=== PATIENT | male | born 1970 | race Caucasian/White ===

== ENCOUNTER → 2024-01-29 12:55 | Outpatient (REF) | payer OTHER, SELFPAY | LOC: RAD 12:55 | PROVIDERS: ATTENDING PHYSICIAN Physician Assistant; FAMILY PHYSICIAN Family Medicine | DX: R10.12 Left upper quadrant pain (principal) | CPT/HCPCS: 76700 ==

== ENCOUNTER → 2024-02-03 10:01 | Outpatient (REF) | payer OTHER, SELFPAY ==
--- NOTE | 2024-02-17 09:56 | OID.L.PAT ---
Pulmonary Nodule Pat Letter
- -
02/17/24
TYE HERNANDEZ
[address] [place] [address]
[place] [address]
Dear TYE,
A pulmonary nodule was seen on an imaging study done by [facility]. This was reviewed by the [facility] Pulmonary Nodule Advisory Board and the following recommendation was made:
Recommendation: Follow up with a reliability engineer.
If you have any questions, please do not hesitate to contact your primary care physician. If you are in need of a Physician, you can go to [email or web address] and click on 'Find a Provider'. Type 'Family Medicine' in the search.
Oncology Nurse Navigator
[facility]
[phone]
--- NOTE | 2024-02-17 10:07 | OID.L.REC ---
Pulmonary Nodule Follow Up
- Recommendation
02/17/24
Pulmonary Nodule Review Recommendations
Your patient, TYE HERNADNEZ, had a pulmonary nodule on an imaging study done on 02/03/2024 in the [facility].
This was reviewed by the [facility] Pulmonary Nodule Advisory Board and the following recommendation was made:
Recommendation: Follow up with a stratigrapher.
If you have any questions please do not hesitate to contact us.
Sincerely,
Oncology Nurse Navigator
[facility]
[phone]
== END ==
LOC: RAD 10:01
PROVIDERS: ATTENDING PHYSICIAN Physician Assistant
DX: R06.02 Shortness of breath (principal)
CPT/HCPCS: 71046

== ENCOUNTER 2024-02-05 05:43 | Inpatient (IN) | payer OTHER, SELFPAY ==
[2024-02-05] VITALS (17 sets, daily range): BP systolic 108–131; BP diastolic 68–93; BMI 27.2; BMI 27.0
[2024-02-05 02:35] LABS: % Basophils 0.8 % (0-2); % Eosinophils 2.1 % (0-6); % Immature Granulocytes 0.4 % (0-0.5); % Lymphocytes 28.3 % (20.5-51.1); % Neutrophils 60.4 % (42.2-75.2); Absolute Basophils 0.1 10^3/uL (0-0.2); Absolute Eosinophils 0.2 10^3/uL (0-0.7); Absolute Lymphocytes 2.2 10^3/uL (1.2-3.4); Absolute Monocytes 0.6 10^3/uL (0.1-0.6); Absolute Neutrophils 4.7 10^3/uL (1.4-6.5); Hemoglobin 13.5 g/dL (13.0-18.0); Mean Corp Hgb Conc. 35.5 g/dL (33.0-37.0); Mean Corpuscular Hgb 30.7 pg (27.0-31.0); Mean Corpuscular Volume 86.4 fL (80.0-94.0); Mean Platelet Volume 9.2 fL (7.4-10.4); Nucleated Red Blood Cells % 0 % (-); Platelet Count 206 10^3/uL (130-400); Red Cell Dist. Width 11.9 % (11.5-14.5); White Blood Cell Count 7.7 10^3/uL (4.8-10.8)
[2024-02-05 02:54] LABS: ALT (SGPT) 36 U/L (0-50); AST (SGOT) 37 U/L (17-59); Albumin 4.1 g/dl (3.5-5.0); Alkaline Phosphatase 94 U/L (38-126); Blood Urea Nitrogen 19 mg/dl (9-20); Calcium 9.2 mg/dl (8.4-10.2); Carbon Dioxide 23 mmol/L (22-30); Chloride 105 mmol/L (98-107); Estimated Creatinine Clearance 82 ml/min; Glucose 168 mg/dl (70-99); Potassium 4.2 mmol/L (3.5-5.1); Sodium 136 mmol/L (135-145); Total Bilirubin 1.1 mg/dl (0.2-1.3); Total Protein 7.2 g/dl (6.3-8.2); eGFR > 60.00
[2024-02-05 03:05] LABS: Troponin I 0.026 ng/ml
[2024-02-05 03:21] LABS: INR 1.26; PT 15.6 Sec (11.4-14.6)
--- NOTE | 2024-02-05 03:41 | ED.GENMED ---
History of Present Illness
General
Chief Complaint: Breathing Problem
Source: patient
Exam Limitations: none
Time Seen by Provider: 02/05/24 02:45
Nursing documentation reviewed up to this point in time: agreed with
Travel History
Have you had any contact with someone who has COVID-19?: No
Do you have any symptoms of coronavirus? Fever > 100 degrees, chills, cough, shortness of breath, sore throat, loss of taste or smell, muscle aches, or headache?: No
History of Present Illness
History of Present Illness:
Pleasant 53-year-old male presents with difficulty breathing and upper abdominal pain. This began approximately -1 week ago and is progressively worsening since. He reports difficulty catching his breath. He tested negative for COVID yesterday.
He just got back from a trip to [place] this past weekend. Patient does report some unexplained weight loss over the last month.
Review of Systems
Review of Systems
Allergies reviewed?: Yes
All Other Systems: ROS reviewed and negative except as documented in HPI and ROS
Respiratory: Reports cough and trouble breathing; Denies hemoptysis
Cardiac: Reports chest pain
ABD/GI: Reports abdominal pain
Phy Exam
General Physical Exam
General Presentation: well appearing and moderate distress
General Skin: warm and dry
General Habitus: normal
General Mental: alert
General Hydration: appears well hydrated
ENT Exam
ENT Exam: EOMI, pharynx normal, neck supple and normocephalic
Eye Exam
Eye Exam: PERRL, cornea clear and conjunctiva normal
Cardiovascular Exam
Cardiovascular Exam: regular rate/rhythm, no edema, no murmur and normal peripheral pulses
Pulmonary Exam
Pulmonary Exam: decreased breath sounds and generalized wheezing
Oxygen Status: oxygen 4 liters via NC
Gastrointestinal Exam
Gastrointestinal Exam: normal bowel sounds, non tender, soft, no organomegaly, no pulsatile mass and non distended
Neurological Exam
Neurological Exam: alert, oriented x3, no motor deficits and speech normal
Musculoskeletal Exam
Musculoskeletal Exam: full ROM and no edema
Skin Exam
Skin Exam: pallor
Psychiatric Exam
Psychiatric Exam: normal mood/affect and anxious
Scores
Heart Failure Risk
Heart Failure Risk Score: Not Applicable
Course
Orders/Labs/Results
Orders:
Orders
02/05/24 02:08
Electrocardiogram (*1) Urgent
Reason for Study: Chest Pain
EKG- Treatment ONCE
02/05/24 02:25
CMP [Comprehensive Metabolic Panel] Urgent
Complete Blood Count/With Diff Urgent
Troponin I Urgent
02/05/24 02:46
CT Pe/abd/pel W Urgent
Comment: changed to combined
Reason For Exam: dyspnea, cp
02/05/24 03:04
PTT Urgent
Comment: ADD ON
Prothrombin Time Urgent
02/05/24 04:[address] Non Medication Order As Directed
Physician Order: PTT 6 hours after initial start of Heparin infusion
Above order entered?: Yes
02/05/24 04:27
Add On- LAB Urgent
Comments:: blood in lab
Tests Added?: PTT
02/05/24 04:30
Heparin 33509 Units/250 ml 25,000 units in 250 ml IV PER PROTOCOL
Weight to be used for heparin protocol in kilograms (kg):: 96
Protocol:: DVT/PE
PTT Goal Range to be used:: PTT 73 to 111 seconds
Order type:: Initial
INITIAL Infusion Dose (UNITS/KG/hr) & then follow protocol:: 18 units/kg/hr
Infusion Dose in UNITS/hr & then follow protocol (UNITS/hr):: 1,700
INFUSION RATE in mL/hr & then follow protocol (mL/hr):: 17
For DVT/PE algorithm, re-bolus for low PTT?: Yes
PTT less than or equal to 64 seconds:: Re-bolus 80 units/kg (max 10,000units). Increase by 400 units/hr
(+ 4mL/hr)
PTT 64.1 to 72.9 seconds:: Re-bolus 40 units/kg (max 5,000 units). Increase by 200 units/hr
(+ 2mL/hr)
PTT 73 to 111 seconds:: Target Range. No change in rate.
PTT 111.1 to 130.9 seconds:: Decrease rate by 200 units/hr (- 2 mL/hr)
PTT 131 to 199.9 seconds:: HOLD for 1 hr. Then decrease by 300 units/hr (- 3mL/hr)
PTT greater than or equal to 200 seconds:: HOLD for 2 hrs & Notify Provider. Then decrease by 400 units/hr
(- 4mL/hr)
Lab follow-up:: Each change, PTT q6h until 2 consecutive are therapeutic. Then
PTT daily.
02/05/24 04:43
Admit/Transfer Patient As Directed
Co-Sign Provider:
Level of Care: Inpatient admission
Assign to:: ICU
Physician / Group: kyle
Diagnosis: acute PE, acute hypoxic RF , wt loss
Reason for Hospitalization: acute PE, acute hypoxic RF , wt loss
Expected length of stay greater than two midnights?: Yes
ELOS- Estimated Length of Stay in days: 3
I certify the patient meets the requirements for IP care: Yes
02/05/24 04:45
Code Status As Directed
Resuscitation Status: Full Code
02/05/24 04:50
Consult Notification Routine
Specialty to Notify: Oncology
ONCOLOGY CONSULT Routine
Consulting Provider: Nikita Brown
Was physician already notified: No
Reason for consult: acue PE , splenic nodule, signifcant wt loss
02/05/24 04:52
COVID-19 Antigen Routine
Source: Nasal Swab
02/05/24 05:[address] See Dose Instructions IV DIRECTED
02/05/24 Breakfast
NPO
Allow oral meds: Yes
Allow clear liquids: Sips of Clears
NPO with Ice Chips: Yes
02/05/24 06:14
Acetaminophen [Tylenol] 650 mg PO Q4HPRN PRN
02/05/24 06:14
Echo 2D MMode Color/Doppler Routine
Reason for Study: pulmonary embolism
Automotive Artist Consult Routine
Consulting Provider: Tomás Lam
Was physician already notified: Yes
Reason for consult: acute PE, acute hypoxic RF , wt loss
Activity As Directed
Activity Level: With Assistance
Bladder Scan As Directed
Follow Bladder Retention/Intermittent Cath Algorithm?: Yes
Frequency: Per Retention Algorithm
Comment: as per intermittent urinary catheter algorithm
Bladder Scan As Directed
Follow Bladder Retention/Intermittent Cath Algorithm?: Yes
PRN if no void in __ hours: 6
Frequency: Per Retention Algorithm
If Bladder Scan Result >: 400
then:: Straight cath
Intake/ Output As Directed
Frequency: Per unit guidelines
Straight Cath As Directed
Frequency: Per Retention Algorithm
Additional Instructions: as per intermittent urinary catheter algorithm
Straight Cath As Directed
Frequency: Per Retention Algorithm
Additional Instructions: straight cath as needed per acute urinary retention algorithm for 24 hrs
Additional Instructions: for bladder scan greater than 400 mL
Vital Signs As Directed
Frequency: Per unit guidelines
O2 Therapy [RESP] Routine
Titrate/Wean O2 to maintain O2 sat greater than (%): 90
US Periph Venous LOWER Ext Valdo Routine
Comment:
Reason For Exam: DVT/PE
02/05/24 08:00
Pantoprazole [Protonix] 40 mg PO DAILY
02/05/24 10:24
PTT Urgent
02/06/24 06:00
Complete Blood Count/No Diff IN AM
Comprehensive Metabolic Panel IN AM
Abnormal Lab Results
02/05/24 02/05/24
02:25 03:04
RBC 4.40 L 10^6/uL
(4.70-6.10)
Hct 38.0 L %
(39.0-52.0)
PT 15.6 H Sec
(11.4-14.6)
Glucose 168 H mg/dl
(70-99)
02/05/24 02:25
02/05/24 02:25
Vital Signs
Initial and Last Documented VS:
Initial Vital Signs
Temp Pulse Resp BP Pulse Ox
98.6 F 133 28 112/70 83
02/05/24 02:03 02/05/24 02:03 02/05/24 02:03 02/05/24 02:03 02/05/24 02:03
Last Documented Vital Signs
Temp Pulse Resp BP Pulse Ox
98.5 F 102 17 131/93 96
02/05/24 06:17 02/05/24 06:25 02/05/24 06:25 02/05/24 06:15 02/05/24 06:41
*Pulse Oximetry
Patient hypoxic: yes
Comment: EKG shows sinus tachycardia rate of 124. There is left axis deviation.
*EKG
Interpreted by ED Provider?: Yes
Interpretation: abnormal
Heart Rate: 124
Rhythm: sinus and sinus tachycardia
QRS Pattern: normal QRS
Ischemia: other (S1Q3T3)
*Critical Care Note
Total Time (30-74mins, 75-104mins- exclusive of procedures): 35 ( Critical care statement: A total of 35 minutes of critical care time was provided for this patient. This time is separate from time utilized to perform the aforementioned documented
procedures. Aggregate critical care time includes only time during which I was engaged in work direct)
Patient Management
Social determinants of health affecting care: Living situation and Strong social support
Discussion with other providers: Hospitalist and Fund Development Manager (Keesha)
Escalation/DeEscalation of care consider admission/obs:
After speaking with the jewel hole finish opener, patient to be admitted to the hospitalist service to the ICU. Catheter directed thrombolytics will be held for now. Heparin ordered.
ED Attending Note
-
Portions of this chart may have been created with voice recognition software.� Occasional wrong word or��sound alike� substitutions may have occurred due to the inherent limitations of voice recognition software.
Discharge Plan
Departure
Patient Disposition: Admit
Date of Disposition: 02/05/24
Time of Disposition: :
Admit to: ICU
Presentation/result/management discussed w/ accepting MD/DO: Hospitalist
Discharge Problem:
Pulmonary embolus
Interventions
Interventions:
*Risk Screen - Suicide Last Done: 02/05/24 02:03
*General Assessment Last Done: 02/05/24 02:58
*Neglect/Abuse Screening Last Done: 02/05/24 02:03
ED- Fall Risk Assessment Last Done: 02/05/24 02:58
*ED COVID-19 Vaccine History Last Done: 02/05/24 02:53
*Nursing Disposition Last Done: 02/05/24 06:00
NG-Rhpjwy-Xphptwrmwr Assessment Last Done: 02/05/24 03:34
ED- Cardiac Assessment Last Done: 02/05/24 02:58
ED- Pulmonary Assessment Last Done: 02/05/24 02:58
Discharge Date and Time
Discharge Date/Time: 02/05/24 06:00
--- NOTE | 2024-02-05 04:11 | HPS.HSE ---
Addendum entered and electronically signed by Kev Evans MD 02/05/24 05:01:
Addendum: Onco consult.
Original Note:
Family Physician
-
Family Physician:
Chief Complaint
-
SoB and Upper abdominal pain:
History of Present Illness
53M Healthy state with no established PMH, not on any Meds seen ar ER for SoB @ upper abdominal pain recent w/u for unexplained wt loss
SOB :
Noted for 4-6 weeks
last 24hrs SoB with minimal exertion
Associated with Lt lower CP with deep inspiration
Associate tachycardia, tachypnea,acute hypoxia POx around mid 80s
Denied CP and pleuritic pain
Recent prolonged driving to [place] and [place] 2 weeks ago
HX superficial vein clot 2-3 yrs ago of unexpended reason. No bllod thinner
No Family HX PE
Unexplained wt loss:
10-20 lbs in 2 weeks
attributed to poor appetite for a month
Poor appetite for 2 -3 weeks
Upper abdominal pain: No N/V/D
Unremarkable WCC and LFTs
Unremarkable US on 01/28/23
HX normal colonoscopy in Nov 2023
Medical History
Past Medical History
Past Medical History: Reports None
Past Surgical History: Reports None
Social History
Tobacco: Non-smoker
Alcohol: None
Drug: None
Family History
Family History: Not pertinent
Allergies / Home Medications
Allergies reflects when Allergies were last updated in [facility].
Home Medications with original date entered in [facility]
Allergy/Medication List:
Allergies
Allergy/AdvReac Type Severity Reaction Status Date / Time
No Known Allergies Allergy Verified 02/05/24 02:08
Home Medications
No Meds [No Current Medications] 02/05/24
Review of Systems
-
Constitutional: Reports No Symptoms
EENT: Reports No Symptoms
Respiratory: Reports See HPI and Trouble Breathing
Cardiac: Reports No Symptoms
Abdomen/GI: Reports Abdominal Pain
: Reports No Symptoms
Musculoskeletal: Reports No Symptoms
Skin: Reports No Symptoms
Neurological: Reports No Symptoms
Endocrine: Reports No Symptoms
Hematologic/Lymphatic: Reports No Symptoms
Psych: Reports No Symptoms
Physical Exam
Vital Signs
Vital Signs
Temp Pulse Resp BP Pulse Ox
98.6 F 112 17 118/92 96
02/05/24 02:03 02/05/24 03:30 02/05/24 03:30 02/05/24 03:26 02/05/24 03:30
Physical Exam
General: Well Developed, Well Nourished, No Apparent Distress and Comfortable
HEENT: NormoCephalic, Anicteric and Moist mucous membranes
Respiratory: Clear and Other (SoB with minimal exertion)
Cardiac: S1/S2, Regular Rhythm and Tachycardia
Breast: Deferred by me
GI: Soft, Non Tender and Non Distended
Rectal: Deferred by Provider
Genito-urinary: Deferred by me
Musculoskeletal: No Edema
Skin: Warm and Dry
Neuro: AO x 3
Psych: Calm
Laboratory Results
-
02/05/24 02:25
02/05/24 02:25
Laboratory Results
PT 15.6 Sec (11.4-14.6) H 02/05/24 03:04
INR 1.26 02/05/24 03:04
Total Bilirubin 1.1 mg/dl (0.2-1.3) 02/05/24 02:25
AST 37 U/L (17-59) 02/05/24 02:25
ALT 36 U/L (0-50) 02/05/24 02:25
Alkaline Phosphatase 94 U/L (38-126) 02/05/24 02:25
Troponin I 0.026 ng/ml 02/05/24 02:25
Data Reviewed
-
CT Scan: Discussed with Physician
Lab Data: Labs Reviewed by me
Impression/Plan
-
Reviewed VS: HR 110s BP 110/80- 120/90 POx 86 on RA 96 on 6L
Data
nl CBC nl CMP
BG 168
NEG TPNI
EKG report
SINUS TACHYCARDIA
LEFT ANTERIOR FASCICULAR BLOCK
CANNOT RULE OUT INFERIOR INFARCT , AGE UNDETERMINED
ABNORMAL ECG
WHEN COMPARED WITH ECG OF 24-JUL-2022 07:20,
AK INTERVAL HAS DECREASED
VENT. RATE HAS INCREASED BY 64 BPM
LEFT ANTERIOR FASCICULAR BLOCK IS NOW PRESENT
MINIMAL CRITERIA FOR INFERIOR INFARCT ARE NOW PRESENT
Prelim CTA chest POS PE
Prelim CT AP: spleen nodule
12/11/22 TTE
Normal biventricular size and systolic function without regional wall motion
abnormality.
No significant valvular disease.
No prior study available for comparison
ASSESSMENT & PLAN
Acute PE: suspect provoked: SBP > 100 - PERT alert
Associated acute hypoxic RF required 6L O2
Associated Lt sided pleurisy
Hi risk simplified PESI (Age < 80 , No prior HX cancer, HR >110, SBP >100, POx < 90) 8.9 %risk of
- Recent prolonged driving to [place] and [place] 2 weeks ago
- HX superficial vein clot 2-3 yrs ago of unexpended reason. No bllod thinner
- No Family HX PE
- Heparin gtt
- ECHO
- B/L Leg US
- will keep NPO till seen by Senior Sql Server Dba
- Senior Sql Server Dba consult
Upper abdominal pain:No N/V/D
Unnamable WCC, LFTs
Unremarkable US on 01/28/23
- Prelim CT AP for splenic nodule
Unexplained wt loss;
for a month
Appetite
HX normal colonoscopy in Nov 2023 pr patient
DVT Px: Heparin gtt
Code: full
ICU
[2024-02-05 05:18] LABS: COVID-19 Antigen Negative (Negative)
[2024-02-05] MEDS: HEPARIN 25000 UNITS/250 ML IV ×2 (05:20→19:03)
--- NOTE | 2024-02-05 06:20 | PTCARENOTE ---
pt adm to ICU from ER via stretcher, ambulated to bathroom to void/assist x 1, ST low 100s, B/L IV patent- heparin gtt infusing at 1700u/hr. POC discussed with pt and , call ferreira with pt.
--- NOTE | 2024-02-05 08:00 | PTCARENOTE ---
Assumed care of patient. Pt rec'd A&Ox3. FRENCH's. Pleasant. Denies pain or SOB at present. S1 S2 reg w/ NSR on monitor. +PP. No edema/no calf discomfort. Rec'd on 5L N/C...sats 97%....decreased to 4L N/C -> 95%. Lungs clear...diminished in
bases. Feels 'tight' in chest w/ deep inhalation. Occasional + NPC. Abdomen round...+BS. Voids w/o issue. Skin WNL. 18P RAC capped. 20P LAC w/ heparin gtt infusing @ 1700 units/hr. VS documented. Call ferreira within reach. at bedside.
Updated on plan of care. Will continue to monitor.
--- NOTE | 2024-02-05 09:40 | CON.ONC ---
Impression
Impression
Multiple bilateral pulmonary emboli with severe clot burden and right heart strain.
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
Plan
Plan
Patient has unprovoked extensive PE. He is clinically and hemodynamically stable currently with normal pulse, blood pressure, and O2 sat.
IV heparin with transition to oral DOAC such as Eliquis.
Typically hypercoagulability testing should be best done as outpatient. Patient was given my business card and recommended scheduled follow-up in approximately 6 months.
At this time based on the extensive nature of his clot, I am recommending 6 months of therapeutic anticoagulation. At that time I will check hypercoagulability testing and consider lifelong prophylactic anticoagulation because of the unprovoked
nature of his clot and the extensive nature.
Regarding weight loss, this appears to be related to his PE. No evidence of malignancy with recent colonoscopy and unremarkable CT scan. I still did suggest that he reach out to his PCP for full physical.
Patient History
History of Present Illness
CC: SOB
HPI: 53M without significant past medical history presented with a 2-week history of dyspnea with minimal exertion. Some chest pain with deep inspiration. In the emergency room he was found to be tachycardic, tachypneic and hypoxic with pulse ox
around mid 80s. No true risk factors. No recent surgery, prolonged air travel, exogenous steroids, family history of VTE. Patient did drive to [place] and to [place] about 2 weeks ago. 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
most of the day in sales. He did have a superficial lower extremity clot approximately 2 years ago require blood thinners. So is up-to-date on cancer screening having had a colonoscopy just this November 2023. He was told to follow-up in 10 years.
He has noted about 10 pounds of weight loss but attributes this to poor appetite over the past 2 weeks with the symptoms. He denies lower extremity leg swelling or calf pain.
Past-Medical/Surgical History
PMH: None *Klinefelter syndrome discovered simply based on infertility issues
PSH: wisdom teeth, arthroscopic knee surgery
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
FH: No history of DVT/PE
Patient Medication
�Medication �Instructions �Recorded �Confirmed �Last Taken �Type
No Meds [No Current Medications] 02/05/24 02/05/24 Unknown History
Active Medications
Generic Name Dose Route Start Last Admin
Trade Name Freq PRN Reason Stop Dose Admin
Acetaminophen 650 mg 02/05/24 06:14
Acetaminophen 325 Mg Tablet PO 03/04/24 06:13
Q4HPRN PRN
mild pain/temp > 100.4 F
Heparin Sodium 25,000 units in 250 mls @ 0 mls/hr 02/05/24 04:30 02/05/24 05:20
Heparin 85877 Units/250 Ml IV 250 mls
PER PROTOCOL VIVI Administration
Protocol
Per Protocol
Pantoprazole Sodium 40 mg 02/05/24 08:00
Pantoprazole 40 Mg Delayed Release Tablet PO 03/04/24 07:59
DAILY VIVI
Pharmacy Profile Note 0 unit 02/05/24 05:[address] 1 Unit IV 03/04/24 04:59
DIRECTED VIVI
Sodium Chloride 0 flush 02/05/24 08:00
Sodium Chloride 0.9% (Flush) Syringe IV 03/04/24 07:59
PER PROTOCOL VIVI
Physical Exam
-
General: Well Developed, Well Nourished, No Apparent Distress and Comfortable
HEENT: Negative Jaundice
Cardiology: Normal Sinus Rhythm, S1 and S2
Pulmonary: Clear
GI: Soft
Extremities: No C/C/E
Neurology: Non Focal
Psych: Calm
Labs
Lab Results
WBC 7.7 10^3/uL (4.8-10.8) 02/05/24 02:25
RBC 4.40 10^6/uL (4.70-6.10) L 02/05/24 02:
Hgb 13.5 g/dL (13.0-18.0) 02/05/24:
Hct 38.0 % (39.0-52.0) L 02/05/24:
MCV 86.4 fL (80.0-94.0) 02/05/24:
MCH 30.7 pg (27.0-31.0) 02/05/24:
MCHC 35.5 g/dL (33.0-37.0) 02/05/24:
RDW 11.9 % (11.5-14.5) 02/05/24:
Plt Count 206 10^3/uL (130-400) 02/05/24:
MPV 9.2 fL (7.4-10.4) 02/05/24:
Abs Immat Gran (auto) 0.0 10^3/uL (0-0.05) 02/05/24:
Absolute Neuts (auto) 4.7 10^3/uL (1.4-6.5) 02/05/24:
Absolute Lymphs (auto) 2.2 10^3/uL (1.2-3.4) 02/05/24:
Absolute Monos (auto) 0.6 10^3/uL (0.1-0.6) 02/05/24:
Absolute Eos (auto) 0.2 10^3/uL (0-0.7) 02/05/24:
Absolute Basos (auto) 0.1 10^3/uL (0-0.2) 02/05/24:
Immature Gran % 0.4 % (0-0.5) 02/05/24:
Neutrophils % 60.4 % (42.2-75.2) 02/05/24:
Lymphocytes % 28.3 % (20.5-51.1) 04/03/24 02:25
Monocytes % 8.0 % (1.7-9.3) 02/05/24 02:25
Eosinophils % 2.1 % (0-6) 02/05/24 02:25
Basophils % 0.8 % (0-2) 02/05/24 02:25
Creatinine 1.2 mg/dL (0.7-1.3) 02/05/24 02:25
CT Chest (PE): Multiple bilateral pulmonary emboli as described above. Severe clot burden. Findings suggesting right heart strain.
CT ABD/PEL:Moderate fecal material throughout the colon. Too small to characterize hypodense hepatic lesion likely a small cyst or hemangioma.
Vital Signs
Vital Signs
Temp Pulse Resp BP Pulse Ox
98.2 F 98 20 114/77 95
02/05/24 07:38 02/05/24 08:25 02/05/24 08:25 02/05/24 08:00 02/05/24 08:25
[2024-02-05] MEDS: PROTONIX 40 MG PO (11:21)
--- NOTE | 2024-02-05 11:54 | CM ---
CM following re: discharge planning.
Reviewed pt's chart, met with pt.
Pt is a 53 year old male, admitted with primary dx of Multiple bilateral pulmonary embolism with severe clot burden and right heart strain.
Pt reports he lives with spouse in a 2SH, 2 steps to enter, has 2 supportive children. Pt described himself as independent in all areas [employer], drives, works.
PCP: Prince Mcneill
Pharmacy: [facility]
D/C plan: home with anticipated no needs. Spouse to transport at discharge.
CM will follow with discharge plan updates as hospitalization progresses
--- NOTE | 2024-02-05 12:00 | PTCARENOTE ---
Echo done this am. Seen by oncology. Diet advanced to regular. Remains on heparin gtt...see intervention. Currently on 2L N/C...sats 96%. No other major changes in assessment. Tx to tele when bed available.
[2024-02-05] MEDS: HEPARIN 7700 UNITS IV (12:25)
--- NOTE | 2024-02-05 12:59 | CON.INTV ---
Consultation
Consultation Request
Date/Time Consultation Requested: 02/05/2024
Date/Time Consultation Performed: 02/05/2024
Requesting Provider: Dr. Jaquez
Performing Provider: Dr. Tomás Ross
Reason for Consultation: Submassive pulmonary embolism
Medical History
-
History of Present Illness:
53-year-old man who denies any significant past medical history, came to the hospital complaining of shortness of breath and upper abdominal discomfort with unexplained weight loss.
Symptoms started about 4 to 6 weeks ago. Shortness of breath progressed to minimal efforts the last 24 hours.
Patient denies any prior history of clots.
Denies any leg edema.
He recently drove from [place] to [place] about 2 weeks ago.
Denies any family history of pulmonary embolism or DVTs.
I did discuss the case over the phone with the emergency room physician, a PERT alert was called. At that time there is no indication for systemic thrombolysis, patient had only mild hypoxemia but was hemodynamically stable without tachycardia.
Past Medical History
Past Medical History: None
Social History
Tobacco: Non-smoker
Alcohol: None
Drug: None
Family History
Family History: Reviewed & Not Pertinent
Allergies / Home Medications
Allergies
Allergy/AdvReac Type Severity Reaction Status Date / Time
No Known Allergies Allergy Verified 02/05/24 02:08
Home Medications
�Medication �Instructions �Recorded �Confirmed �Last Taken �Type
No Meds [No Current Medications] 02/05/24 02/05/24 Unknown History
Review of Systems
-
History Source: Patient
All other systems: Negative unless noted
Vitals / Labs / Diagnostic Testing
Vital Signs
Temp Pulse Resp BP Pulse Ox
98.3 F 99 20 108/85 93
02/05/24 11:20 02/05/24 12:45 02/05/24 12:45 02/05/24 12:00 02/05/24 12:40
Lab Data
02/05/24 02:25
02/05/24 02:25
Laboratory Results
02/05/24 02/05/24 02/05/24
03:04 04:24 11:27
PT 15.6 H
INR 1.26
APTT 29.0 Cancelled 60.0 H
Diagnostic Testing:
Physical Exam
-
HEENT: Normocephalic
Cardiovascular: S1/S2
Respiratory: Clear and Non-Labored Respirations
GI: Non Distended
Neurology: Awake, Alert and Oriented
Skin: Warm
General: Respiratory Distress
Assessment
-
Unprovoked pulmonary embolism-intermediate high risk/submassive.
CT angiogram reviewed:Multiple bilateral pulmonary emboli as described above. Severe clot burden. Findings suggesting right heart strain.
There are multiple bilateral pulmonary emboli with a large saddle embolus in the right main pulmonary artery. This measures 3.3 cm in length and 1.0 cm in thickness. This is 3 cm from the bifurcation of the pulmonary trunk. The emboli involve
segmental and subsegmental vessels in all lobes. There are signs of right heart strain with the right ventricle larger than left. It measures 4.8 cm in diameter. The left measures 2.1 cm.
Negative troponin
Echocardiogram: 02/05/2024, LVEF 60-65%. Enlarged biventricular size. Reduced right ventricular systolic function. LVEF 60 to 65%. Trace TR. Estimated pulmonary artery pressure 15 to 20 mmHg.
Hypoxemic respiratory failure secondary to above on nasal cannula ox
Unexplained weight loss
Conditions present prior admission:
Prior history of superficial clot 2 to 3 years ago-unclear reasons. Not on anticoagulation
Denies family history
Does not take any medications
Plan and recommendations:
Possibly unprovoked submassive pulmonary embolism.
Patient states that he is up-to-date with cancer screening even with recent colonoscopy.
There is no family history of clots.
He did have personal history of superficial thrombosis in the past.
-
At this point no indication for thrombolysis. Patient not significant tachycardia or hypoxemic. I personally discussed the case with emergency room physician overnight, primary team-Dr. Jaquez this morning.
Echocardiogram reviewed showed mild RV dysfunction without significant pulmonary hypertension. Only trace TR.
Lower extremity Dopplers pending.
Continue with anticoagulation.
Will continue for at least 48 to 72 hours and then transition to oral anticoagulant.
Suspect he will need lifelong anticoagulation.
May benefit from hypercoagulable evaluation in the future
-
Will maintain ICU level of care until later in the afternoon. If stable then we will transfer to telemetry.
Pulmonary will continue to follow.
--- NOTE | 2024-02-05 14:07 | W.PN.UPDATE ---
Update Note
Progress Note Update
CT chest PE images reviewed
Echocardiogram findings discussed with pulmonology/corrective and manual arts therapist
Patient to be maintained on IV heparin drip for now
Follow-up lower extremity venous Doppler result
Transfer to telemetry
Wean off oxygen as possible
[2024-02-05 19:07] LABS: APTT > 200 Sec (23.4-35.0)
--- NOTE | 2024-02-05 19:16 | PTCARENOTE ---
ptt >200. hep gtt on hold for two hours and will decrease by 400 units. Proof Coins Inspector notified per protocol. Will monitor.
[2024-02-06] VITALS (8 sets, daily range): BP systolic 107–134; BP diastolic 66–93
[2024-02-06 01:32] LABS: APTT 75.2 Sec (23.4-35.0)
[2024-02-06 06:30] LABS: Hematocrit 38.9 % (39.0-52.0); Hemoglobin 13.3 g/dL (13.0-18.0); Mean Corp Hgb Conc. 34.2 g/dL (33.0-37.0); Mean Corpuscular Hgb 30.4 pg (27.0-31.0); Mean Platelet Volume 9.4 fL (7.4-10.4); Platelet Count 241 10^3/uL (130-400); Red Blood Cell Count 4.37 10^6/uL (4.70-6.10); Red Cell Dist. Width 11.9 % (11.5-14.5); White Blood Cell Count 9.6 10^3/uL (4.8-10.8)
[2024-02-06 06:43] LABS: APTT 61.7 Sec (23.4-35.0)
[2024-02-06 06:57] LABS: ALT (SGPT) 31 U/L (0-50); AST (SGOT) 25 U/L (17-59); Albumin 3.7 g/dl (3.5-5.0); Alkaline Phosphatase 84 U/L (38-126); Blood Urea Nitrogen 17 mg/dl (9-20); Calcium 9.2 mg/dl (8.4-10.2); Carbon Dioxide 23 mmol/L (22-30); Chloride 105 mmol/L (98-107); Estimated Creatinine Clearance 98 ml/min; Glucose 119 mg/dl (70-99); Potassium 4.4 mmol/L (3.5-5.1); Sodium 139 mmol/L (135-145); Total Bilirubin 1.3 mg/dl (0.2-1.3); Total Protein 6.8 g/dl (6.3-8.2); eGFR > 60.00
--- NOTE | 2024-02-06 07:00 | PTCARENOTE ---
Received patient from staff midwife/apprenticeship director, patient is AAOx4, pleasant, cooperative. on 2L nasal cannula, diminished breath sounds throughout. SR-ST on monitor. Heparin gtt currently at 1700 units/hr. Will change pending PTT result. Patient on regular
diet, able to order. He is ambulatory in room, uses urinal in bed if needed. Will review orders, written for tele tx, able to make needs known, call ferreira within reach.
[2024-02-06] MEDS: HEPARIN 7700 UNITS IV (07:20)
[2024-02-06] MEDS: PROTONIX 40 MG PO (07:21)
[2024-02-06] MEDS: ELIQUIS 10 MG PO ×2 (09:10→20:07)
--- NOTE | 2024-02-06 09:25 | W.PN.ONC ---
Today's Communication / Plan
-
Patient has unprovoked extensive PE. He is clinically and hemodynamically stable currently with normal pulse, blood pressure, and O2 sat.
IV heparin with transition to oral DOAC such as Eliquis.
Typically hypercoagulability testing should be best done as outpatient. Patient was given my business card and recommended scheduled follow-up in approximately 6 months.
6 months of therapeutic anticoagulation
Hypercoagulability testing and consider lifelong prophylactic anticoagulation directed by DASH thrombosis score
Would obtain baseline APL assessment and D-dimer
No evidence of malignancy with recent colonoscopy and unremarkable CT scan
Impression
Impression
Multiple bilateral pulmonary emboli with severe clot burden and right heart strain.
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
Plan
Plan
Subjective/Objective
Subjective/Objective
Significantly improved. Denies shortness of breath with conversation.
Vital Signs:
Vital Signs
Temp Pulse Resp BP Pulse Ox
98.8 F 104 17 113/84 93
02/06/24 07:34 02/06/24 08:55 02/06/24 08:55 02/06/24 08:00 02/06/24 08:55
PE:
General: Well Developed, Well Nourished, No Apparent Distress and Comfortable
HEENT: Negative Jaundice
Cardiology: Normal Sinus Rhythm, S1 and S2
Pulmonary: Clear
GI: Soft
Extremities: No C/C/E
Neurology: Non Focal
Lab Results:
Laboratory Data
WBC 9.6 10^3/uL (4.8-10.8) 02/06/24 06:21
Hgb 13.3 g/dL (13.0-18.0) 02/06/24 06:21
Plt Count 241 10^3/uL (130-400) 02/06/24 06:21
PT 15.6 Sec (11.4-14.6) H 02/05/24 03:04
INR 1.26 02/05/24 03:04
APTT 61.7 Sec (23.4-35.0) H 02/06/24 06:21
eGFR > 60.00 02/06/24 06:21
--- NOTE | 2024-02-06 11:53 | PTCARENOTE ---
Patient reports feeling 'blah' after taking eloquis. BP has remained stable, no increase in oxygen demands, no pain, no dizziness. Notified pharmacy and Dr. Jaquez. No further orders at this time.
--- NOTE | 2024-02-06 12:00 | PTCARENOTE ---
No changes in patient's assessment. patient is resting in bed. intermittent pain in abdomen. at bedside, awaiting ultrasound.
--- NOTE | 2024-02-06 12:03 | W.PN.PUL3 ---
Today's Communication / Plan
-
Oral anticoagulation
Home oxygen assessment tomorrow
Increase activity as able
Monitor for bleeding
telemetry monitor
Assessment
-
53-year-old man without significant past medical history. Came to the hospital complaining of progressive shortness of breath. Found to have bilateral significant pulmonary embolism.
-
Unprovoked pulmonary embolism-intermediate high risk/submassive.
CT angiogram reviewed:Multiple bilateral pulmonary emboli as described above. Severe clot burden. Findings suggesting right heart strain.
There are multiple bilateral pulmonary emboli with a large saddle embolus in the right main pulmonary artery. This measures 3.3 cm in length and 1.0 cm in thickness. This is 3 cm from the bifurcation of the pulmonary trunk. The emboli involve
segmental and subsegmental vessels in all lobes. There are signs of right heart strain with the right ventricle larger than left. It measures 4.8 cm in diameter. The left measures 2.1 cm.
Negative troponin
Echocardiogram: 02/05/2024, LVEF 60-65%. Enlarged biventricular size. Reduced right ventricular systolic function. LVEF 60 to 65%. Trace TR. Estimated pulmonary artery pressure 15 to 20 mmHg.
Hypoxemic respiratory failure secondary to above on nasal cannula ox
Unexplained weight loss
Conditions present prior admission:
Prior history of superficial clot 2 to 3 years ago-unclear reasons. Not on anticoagulation
Denies family history
Does not take any medications
Plan and recommendations:
Has remained hemodynamically stable.
Only mildly tachycardic. Improved.
Was able to ambulate to the restroom, reports shortness of breath without lightheadedness.
Mild oxygen requirement-wean off as able. Home oxygen assessment tomorrow.
Overall symptoms improved.
-
Patient states that he is up-to-date with cancer screening even with recent colonoscopy.
There is no family history of clots.
He did have personal history of superficial thrombosis in the past.
CT abdomen pelvis not concerning for malignancy
Recent colonoscopy also without malignancy
-
Echocardiogram reviewed showed mild RV dysfunction without significant pulmonary hypertension. Only trace TR.
Lower extremity Dopplers never performed. Unlikely to mold changer. Patient has no edema on the lower extremities.
Suspect he will need lifelong anticoagulation. Will be decided in the outpatient setting. Will see hematology in the future. No need for hypercoagulable evaluation here. Correspondence reviewed.
-
Transferred to telemetry.
Pulmonary will continue to follow while in the hospital.
Will observe for additional 24 hours.
Recommend outpatient pulmonary follow-up in about 3 months.
Subjective Data
-
Date of Service:
Date of Service: February 06, 2024
Chief Complaint: Pulmonary Follow Up (Acute bilateral pulmonary embolism.)
Subjective:
Patient feels better PreNexa denies any shortness of breath at rest
Was able to ambulate to the restroom
Tolerating anticoagulation
Review of Systems
General: Fever (n)
Cardiopulmonary: Dyspnea (improved), Cough (n), Sputum Production (n) and Chest Pain (n)
GI: Abdominal Pain (n)
Objective Data
Data Reviewed
Vital Signs / I&O / Oxygen:
Vital Signs
Temp Pulse Resp BP Pulse Ox
98.8 F 104 17 113/84 93
02/06/24 11:43 02/06/24 08:55 02/06/24 08:55 02/06/24 08:00 02/06/24 08:55
Intake and Output
02/05/24 02/06/24 02/07/24
06:59 06:59 06:59
Intake Total 969 / 969 450 / 450
Balance 969 / 969 450 / 450
SaO2 93
Nasal Cannula flow liters per 2
minute
Physical Exam
General: Respiratory Distress (n)
HEENT: Normocephalic
Cardiovascular: S1-S2 and Regular Rhythm
Respiratory: Clear and Non-Labored Respirations
GI: Soft and Non Distended
Neurology: Awake, Alert and No Motor Deficits
Skin: Warm
Labs/Micro/Reports
Lab Data
02/06/24 06:21
02/06/24 06:21
Laboratory Results
02/05/24 02/05/24 02/06/24
11:27 18:21 01:08
APTT 60.0 H > 200 H* 75.2 H
02/06/24
06:21
APTT 61.7 H
[2024-02-06 12:21] LABS: D-Dimer 4.46 ug/mlFEU (0.00-0.50)
--- NOTE | 2024-02-06 13:10 | PN.CDI ---
CDI
- -
CDI:
Physician Documentation Request
Admit Date: 02/05/24 05:43
Dear Doctor Leonid,
Patient admitted for pulmonary embolism.
Pulmonary note states 'There are signs of right heart strain with the right ventricle larger than left'
Echo /3 conclusion 'Enlarged right ventricular size. Reduced right ventricular systolic function Normal PASP'
Please clarify:
PE with acute cor pulmonale
PE without acute cor pulmonale
Other
Use of terms such as suspected, likely, concern for, or probable (associated with a specific diagnosis that is being evaluated, monitored, or treated as if it exists) are acceptable and can be coded in the inpatient setting, when documented at the
time of discharge.
Thank you,
Sabrina Roland RN, BSN
CDI Specialist
tiger text
Please use your independent medical judgment in providing your response.
--- NOTE | 2024-02-06 14:00 | PTCARENOTE ---
Ultrasound IMPRESSION: Findings are positive for occlusive thrombus in the proximal profunda vein on the right and nonocclusive thrombus in the common femoral and proximal femoral vein on the right. results were tiger texted to Dr. Jaquez.
--- NOTE | 2024-02-06 14:31 | W.PN.HOSP.TC ---
Addendum entered and electronically signed by Rodrigue Jaquez MD 02/09/24 15:03:
Correction
Left chest pleurisy and not left LEG pleurisy
Original Note:
Today's Communication/Plan
-
wean off o2 as possible
start eliquis
Assessment / Plan
Assessment / Plan
1. Acute bilateral PE
Right LE DVT
Acute hypoxic respiratory failure
-ongoing sob symptoms for 7 days or so
-simplified PESI score of 2 for hyopxia, tachycardia
-TTE showing signs of RV strain, normal PASP
-patient on heparin drip
-Transition to eliquis today
-LE venous doppler positive for right cfv and proximal femoral vein clot
-Hematology involved and checking for cardiolipin ab
2. Left leg pleurisy
- from PE, symptomatic care
3. weight loss
- had age appropriate cancer screening
- continue f/u with hemat/oncology
- HX normal colonoscopy in Nov 2023 pr patient
DVT Px: Heparin gtt
Code: full
Anticipated Discharge: Within 24 hours
Subjective/Interval History
-
Date of Service: February 06, 2024
No complaints overnight
remains on o2 through NC
Objective Data
-
Labs:
Laboratory Results
02/06/24 02/06/24
06:21 13:30
WBC 9.6
Hgb 13.3
Hct 38.9 L
Plt Count 241
APTT 61.7 H Pending
Sodium 139
Potassium 4.4
Chloride 105
Carbon Dioxide 23
BUN 17
Creatinine 1.0
Glucose 119 H
Calcium 9.2
Total Bilirubin 1.3
AST 25
ALT 31
Alkaline Phosphatase 84
Vital Signs:
Vital Signs
Temp Pulse Resp BP Pulse Ox
98.8 F 109 20 124/93 94
02/06/24 11:43 02/06/24 12:35 02/06/24 12:35 02/06/24 12:00 02/06/24 12:35
I&O
02/05/24 02/06/24 02/07/24
06:59 06:59 06:59
Intake Total 969 / 969 450 / 450
Balance 969 / 969 450 / 450
Review of Systems
-
Respiratory: Reports No Symptoms
Cardiac: Reports No Symptoms
Abdomen/GI: Reports No Symptoms
Physical Exam
-
General: Comfortable
HEENT: Oxygen (2 L )
Respiratory: Clear to Auscultation
Cardiac: Regular Rhythm and S1/S2; Negative Murmur or Rub
GI: Soft, Nontender and Nondistended
Musculoskeletal: No Edema
Neuro: Awake, Alert, Oriented, No Motor Deficits and Nonfocal/Grossly Intact
Psych: Calm
--- NOTE | 2024-02-06 14:47 | CM ---
CM following re: discharge planning.
Reviewed pt's chart. Per chart review, pt ambulates in the room, requires 2L NC of O2, continue supportive care.
D/C plan: remains unchanged: home with anticipated no needs. Spouse to transport at discharge.
CM will follow with discharger plan updates as hospitalization progresses
--- NOTE | 2024-02-06 20:00 | PTCARENOTE ---
rec`d pt at 1900, laying in bed. pt AAOx3. moves all extremities. ST on monitor. +pulses, no edema. 96% POX on monitor w/2L. dyspnea on exertion. BM at change of shift. BM and urinates in toilet. skin c/d/i. call ferreira in reach. safe environment
maintained.
[2024-02-07 04:00] VITALS: BP 113/62
--- NOTE | 2024-02-07 04:00 | PTCARENOTE ---
pt reassessed. no changes in pt assessment. call ferreira in reach.
[2024-02-07 05:21] LABS: Blood Urea Nitrogen 14 mg/dl (9-20); Calcium 8.7 mg/dl (8.4-10.2); Carbon Dioxide 23 mmol/L (22-30); Chloride 106 mmol/L (98-107); Estimated Creatinine Clearance 109 ml/min; Glucose 113 mg/dl (70-99); Potassium 4.1 mmol/L (3.5-5.1); Sodium 135 mmol/L (135-145); eGFR > 60.00
[2024-02-07 08:00] VITALS: BP 126/77
[2024-02-07] MEDS: PROTONIX 40 MG PO (08:04)
[2024-02-07] MEDS: ELIQUIS 10 MG PO (08:04)
--- NOTE | 2024-02-07 08:08 | W.PN.HOSP.TC ---
Addendum entered and electronically signed by Rodrigue Jaquez MD 02/09/24 15:03:
Correction
Left chest pleurisy and not left LEG pleurisy
Original Note:
Today's Communication/Plan
-
d/c home
Assessment / Plan
Assessment / Plan
1. Acute bilateral PE
Right LE DVT
Acute hypoxic respiratory failure - resolved
PE without acute cor pulmonale
-ongoing sob symptoms for 7 days or so
-simplified PESI score of 2 for hyopxia, tachycardia
-TTE showing signs of RV strain, normal PASP
-Transition to eliquis from yesterday
-LE venous doppler positive for right cfv and proximal femoral vein clot
-Hematology involved and checking for and for phospholipid antibody -pending result at time of discharge. -Patient to follow-up with hematology and off
2. Left leg pleurisy
- from PE, symptomatic care
3. weight loss
- had age appropriate cancer screening
- continue f/u with hemat/oncology
- HX normal colonoscopy in Nov 2023 pr patient
DVT Px: eliquis
Code: full
More than 30 minutes spent in discharge including
Final examination of the patient
Summarizing hospital stay
Instructions for continuing care to all relevant caregivers
Preparation of discharge records, prescriptions, and referral forms
Total time spent (in minutes): 38 mins
Anticipated Discharge: Today
Subjective/Interval History
-
Date of Service: February 07, 2024
feeling tired/fatigued
able to be weaned off of o2
Objective Data
-
Labs:
Laboratory Results
02/07/24
04:47
Sodium 135
Potassium 4.1
Chloride 106
Carbon Dioxide 23
BUN 14
Creatinine 0.9
Glucose 113 H
Calcium 8.7
Vital Signs:
Vital Signs
Temp Pulse Resp BP Pulse Ox
98.7 F 89 23 113/62 91
02/07/24 07:11 02/07/24 04:55 02/07/24 04:55 02/07/24 04:00 02/07/24 07:58
I&O
02/06/24 02/07/24 02/08/24
06:59 06:59 06:59
Intake Total 969 / 969 450 / 450
Balance 969 / 969 450 / 450
Review of Systems
-
Respiratory: Reports No Symptoms
Cardiac: Reports No Symptoms
Abdomen/GI: Reports No Symptoms
Physical Exam
-
General: Comfortable
HEENT: Oxygen (2 L )
Respiratory: Clear to Auscultation
Cardiac: Regular Rhythm and S1/S2; Negative Murmur or Rub
GI: Soft, Nontender and Nondistended
Musculoskeletal: No Edema
Neuro: Awake, Alert, Oriented, No Motor Deficits and Nonfocal/Grossly Intact
Psych: Calm
--- NOTE | 2024-02-07 09:00 | PTCARENOTE ---
Rec'd pt at 0800 awake alert and oriented resting in bed. Overall states he feels better. Still admits to getting winded with exertion. but denies discomfort otherwise. Skin is pink wm and dry. Respirs are unlabored at rest on RA with sats of 91%.BS
are decreased on the L posteriorly base to 1/3 up. Nailbeds are pink with refill < 2 sec. Getting about 1000 mls on IS. Monitor ST-SR . VS as documented. + pulses. No edema. Abd is soft with + BS. Voiding in the bathroom. Capped ints intact LAC
and R arm. Dr. Jaquez in and pt ok for discharge after home O2 assessment. Call ferreira in reach. Plan of care reviewed with pt.
--- NOTE | 2024-02-07 09:59 | CM ---
CM following re: discharge planning.
Reviewed pt's chart, met with pt and pt's spouse at bedside.
Discharge order is noted. Both pt and his spouse are aware, expressed their agreement. pt is on room air, independent with functional ability. No after care VN services indicated upon the discharge. pt's spouse stated she will transport pt home.
D/C plan: home no needs. Spouse to transport
--- NOTE | 2024-02-07 11:17 | PTCARENOTE ---
Sitting oob in the chair. Sats 90-93%. States breathing feels good sitting up. at the bedside. No other changes.
[2024-02-07 11:39] VITALS: BP 121/96
[2024-02-07 11:46] VITALS: O2SAT 90; O2SAT 91
--- NOTE | 2024-02-07 12:30 | PTCARENOTE ---
Pt ambulated about 200 feet in the hallway. Sats at rest on RA 91-92%, With walking 89-90%. Pt admits to just feeling tired- mostly he stated he felt was from the ELiquis which he said just doesn't make him feel right. updated on Home O2
evaluation and ok for discharge. Instructions given to pt and - went over Eliquis dosing. Pt verbalized understanding. Capped ints removed from R and L arms-sites wnl. Pt then discharged via wheelchair with belongings from room and dc
instructions.
[2024-02-07 13:24] VITALS: BP 121/96
[2024-02-08 02:19] LABS: Beta-2-Glycoprotein I Ab. IgG <10 SGU (<=20); Beta-2-Glycoprotein I Ab. IgM <10 SMU (<=20)
[2024-02-08 09:10] LABS: Cardiolipin IgA Antibody <10 APL (<=11); Cardiolipin IgM Antibody <10 MPL (<=12); Cardiolipin Igg Antibody <10 GPL (<=14)
[2024-02-09 01:10] LABS: Anti-Xa Qualitative Interp Present (Not Present); Anticoagulant Med Neutralizati Hepzyme (Not Performed); Hexagonal Phospholipid Confirm Not Performed s (<=7.9); Neutralized PTT-LA Ratio 1.11 (<=1.20); Neutralized dRVTT Screen Ratio 1.56 (<=1.20); PTT-LA Ratio 1.59 (<=1.20); Prothrombin Time 17.4 s (12.0-15.5); Thrombin Time 27.6 s (<=19.5); dRVTT 1.1 Mix Ratio 1.31 (<=1.20); dRVTT Confirmation Ratio 0.73 (<=1.20); dRVTT Screen Ratio 1.68 (<=1.20)
--- NOTE | 2024-02-09 07:46 | W.DCSUMMARY ---
Discharge Summary
Discharge Data
Date of Admission: 02/05/24
Date of Discharge: 02/07/24
-
Pending Results: No
Hospital Course
Discharging Physician : Dr Rodrigue Jaquez
Disposition : To home
Primary care physician : Dr Prince Mcneill
Principal Discharge diagnosis :
Bilateral pulmonary embolism
Right leg deep venous thrombosis
Left sided pleurisy
Acute hypoxic respiratory failure
Chronic Discharge diagnosis :
Weight loss
Obesity
Hospital Course :
Patient is a 53-year-old male without significant past medical history came to ER for having ongoing shortness of breath for 1 week. Patient was also complaining some left lower rib cage pain. In ER patient was hypoxic and tachycardic. Chest x-ray
was clear. There was concern of patient having new PE and a CT chest PE was done which showed bilateral large clot burden and pulmonary artery. There was signed up asthma restraints as well on CT. Patient was started on heparin drip and follow-up
echocardiogram was done which confirmed mild RV strain although pulmonary arterial pressure were within normal limit. Supervisor Paper Machine/carbon furnace operator and hematology were consulted and was following along. After evaluation of imaging/echo findings
patient was recommended to continue on heparin drip. Lower extremity venous Doppler was was positive for right-sided femoral vein clot. Patient checked for antiphospholipid antibody syndrome and has been negative. Patient was transition to
Eliquis therapy. Patient was able to be weaned off of oxygen. Patient to follow-up with hematology in office in 3 to 6 months to finish hypercoagulability to blood workup.
Patient also unexplained weight loss for some time although no clear concern for malignancy. Patient been up to date with age-appropriate screening test. Patient to continue follow-up with oncology in office.
Important imaging findings :
CT Chest/abd/pelvis
Multiple bilateral pulmonary emboli as described above. Severe clot burden. Findings suggesting right heart strain. Moderate fecal material throughout the colon.
Too small to characterize hypodense hepatic lesion likely a small cyst or hemangioma.
LE venous Doppler
Findings are positive for occlusive thrombus in the proximal profunda vein on the right and nonocclusive thrombus in the common femoral and proximal femoral vein on the right.
No DVT on the left.
Procedure findings :
None
Discharge Plan
-
Patient Disposition: Home (Routine Discharge)
Discharge Diagnosis/Procedures: Bilateral PE, Right leg DVT
Condition: Fair
Diet: Regular
Activity: No strenuous activity
Driving Restrictions: No driving for 1 week
Bathing Restrictions: OK to Shower
Referrals:
Prince Mcneill PA [Family Provider] - in one week
Tomás Lam MD [Active] - in four to six weeks
Nikita Brown MD [Active] - in one to two months
Prescriptions:
New
Eliquis 5 mg tablet
See Rx Instructions .ROUTE .COMPLEX Qty: 72 0RF
Rx Instructions:
Take 2 Tablet twice daily for 6 Days THEN
Take 1 Tablet twice daily for maintenance
Eliquis 5 mg tablet
5 mg PO BID Qty: 60 2RF
Rx Instructions:
USE AFTER FINISHING INITIAL 1 MONTH SUPPLY (MONTH 2 AND ONWARD SUPPLY)
Tylenol Extra Strength 500 mg powder in packet
1,000 mg PO Q6H PRN (Reason: Pain) Qty: 30 0RF
Discharge Orders:
Discharge Patient (As Directed); Ordered 02/07/24
Ordered By: Rodrigue Jaquez
Discharge Date and Time
Discharge Date/Time: 02/07/24 13:34
Print Language: BURKIN[place]
== END 2024-02-07 13:34 | disposition home or self-care (01) | DRG 175 ==
LOC: ICU 05:43
PROVIDERS: Emergency Medicine; Internal Medicine Hematology & Oncology; ADMITTING PHYSICIAN Internal Medicine; ATTENDING PHYSICIAN Hospitalist; CONSULT PHYSICIAN Internal Medicine Critical Care Medicine; CONSULT PHYSICIAN Internal Medicine Hematology & Oncology; EMERGENCY PHYSICIAN Student in an Organized Health Care Education/Training Program; FAMILY PHYSICIAN Physician Assistant
DX: I26.92 Saddle embolus of pulmonary artery without acute cor pulmonale (principal); J96.01 Acute respiratory failure with hypoxia; I82.411 Acute embolism and thrombosis of right femoral vein; I82.890 Acute embolism and thrombosis of other specified veins; R63.4 Abnormal weight loss; N46.9 Male infertility, unspecified; Q98.4 Klinefelter syndrome, unspecified; Z11.52 Encounter for screening for COVID-19
CPT/HCPCS: 71275; 74177; 80048; 80053; 84484; 85025; 85027; 85379; 85520; 85525; 85610; 85613; 85670; 85730; 86146; 86147; 87811; 93005; 93306; 93970; 96365; 99291; Q9967

== ENCOUNTER 2024-02-16 19:35 | Emergency (ER) | payer OTHER, SELFPAY ==
[2024-02-16 19:36] VITALS: BP 150/113
--- NOTE | 2024-02-16 20:13 | ED.GENMED ---
History of Present Illness
General
Chief Complaint: Headache
Source: patient
Exam Limitations: none
Time Seen by Provider: 02/16/24 20:07
Travel History
Have you had any contact with someone who has COVID-19?: No
Do you have any symptoms of coronavirus? Fever > 100 degrees, chills, cough, shortness of breath, sore throat, loss of taste or smell, muscle aches, or headache?: No
History of Present Illness
History of Present Illness:
See MDM
Past History
Past History
ED Past Medical History: Other (PE)
ED Past Surgical History: None
Social History
Tobacco: Non-smoker
Alcohol: None
Phy Exam
Physical Exam
Physical Exam:
See MDM
Course
Orders/Labs/Results
Orders:
Orders
02/16/24 19:[address] [CT Head W/o Iv Contrast] Urgent
Comment:
Reason For Exam: CHG MENTAL STATUS; ON ELIQUIS
Vital Signs
Initial and Last Documented VS:
Initial Vital Signs
Temp Pulse Resp BP Pulse Ox
97.4 F 80 18 150/113 98
02/16/24 19:36 02/16/24 19:36 02/16/24 19:36 02/16/24 19:36 02/16/24 19:36
Last Documented Vital Signs
Temp Pulse Resp BP Pulse Ox
97.4 F 80 18 150/113 98
02/16/24 19:36 02/16/24 19:36 02/16/24 19:36 02/16/24 19:36 02/16/24 19:36
MDM/Problems Addressed
Differential Diagnosis Includes:
HPI and MDM Narrative:
53-year-old male presenting for evaluation of increased fogginess. Patient was recently prescribed Eliquis when he was found to have a PE. at bedside does admit that the new diagnosis has stressed the patient out. He was sent in to rule out
any brain bleed. Patient ambulating without difficulty
Physical exam
General: Well appearing and non-toxic
HEENT: protecting airway
Neck: appears supple
CV: No evidence of cyanosis. Regular rate and rhythm
Resp: No accessory muscle use. Lungs clear
Abd: Non-distended
Extremities: No deformities
Neuro: alert
Psych: Normal affect
Skin: Intact
Problems Addressed including Acute and Chronic Conditions affecting care:
1. [Fogginess
Acuity: acute
Prognosis: stable
Details: Unsure if this is related to Eliquis side effects. Will obtain CT to rule out head bleed
Updates
CT head negative for acute pathology. Discussed return precautions
Differential Diagnosis (but not limited to): Medication side effect, intracranial hemorrhage, depression
Testing considered: Blood work but he had workup at a recent admission
Drug therapy (if applicable): OTC meds, please see d/c instruction regarding Rx drugs
Amount and/or Complexity of Data Reviewed
Clinical info obtained from: Patient
External data reviewed: Recent diagnosis of pulmonary embolism
Labs I independently reviewed (but not limited to): N/A
Radiology: The CT scan was personally and independently reviewed. In addition, official CT report reviewed.
Pulse Ox: not hypoxic
EKG independently reviewed: N/A
Creative Intern: N/A
Critical Care: N/A
Risk of Complication:
Social Determinants of health: Good social support
Discussed with other providers: N/A
Escalation of Care includes Admit/Obs: After being observed in the Emergency Department, pt stable for discharge.
Occasional wrong word or 'sound a like' substitutions may have occurred due to the inherent limitations of voice recognition software. Read the chart carefully and recognize, using context, where substitutions have occurred.
*Critical Care Note
Total Time (30-74mins, 75-104mins- exclusive of procedures): Not Applicable
ED Attending Note
-
Portions of this chart may have been created with voice recognition software.� Occasional wrong word or��sound alike� substitutions may have occurred due to the inherent limitations of voice recognition software.
Discharge Plan
Departure
Patient Disposition: Home (Routine Discharge)
Date of Disposition: 02/16/24
Time of Disposition: 20:43
Patient with high blood pressure during this ER visit?: Yes
Discharge Problem:
Adverse drug effect
Instructions: BLOOD PRESSURE
Prescriptions:
No Action
Eliquis 5 mg tablet
See Rx Instructions .ROUTE .COMPLEX Qty: 72 0RF
Rx Instructions:
Take 2 Tablet twice daily for 6 Days THEN
Take 1 Tablet twice daily for maintenance
Eliquis 5 mg tablet
5 mg PO BID Qty: 60 2RF
Rx Instructions:
USE AFTER FINISHING INITIAL 1 MONTH SUPPLY (MONTH 2 AND ONWARD SUPPLY)
Tylenol Extra Strength 500 mg powder in packet
1,000 mg PO Q6H PRN (Reason: Pain) Qty: 30 0RF
Referrals:
Luiz Regalado MD [Family Provider] -
Activity Restrictions/Additional Instructions:
Please return for any worsening symptoms.
You may return at any time if you have further concerns.
Please follow up with your doctor at the first available appointment, preferably this week.
Thank you for choosing [facility].
Interventions
Interventions:
*Risk Screen - Suicide Last Done: 02/16/24 19:36
*General Assessment Last Done: 02/16/24 20:26
*Neglect/Abuse Screening Last Done: 02/16/24 19:36
ED- Fall Risk Assessment Last Done: 02/16/24 20:28
*ED COVID-19 Vaccine History Last Done: 02/16/24 20:26
ED- Neurological Assessment Last Done: 02/16/24 20:28
Discharge Date and Time
Print Language: LUX[place]GISH
[2024-02-16 20:25] VITALS: BMI 27.8
[2024-02-16 20:52] VITALS: BP 131/82
== END 2024-02-16 20:53 | disposition home or self-care (01) ==
LOC: EMR 19:35
PROVIDERS: EMERGENCY PHYSICIAN Student in an Organized Health Care Education/Training Program; FAMILY PHYSICIAN Family Medicine
DX: R51.9 Headache, unspecified (principal); T45.515A Adverse effect of anticoagulants, initial encounter; Y92.9 Unspecified place or not applicable
CPT/HCPCS: 99284; 70450

== ENCOUNTER → 2024-03-11 | Outpatient (REF) | payer OTHER, SELFPAY | LOC: DHSLP | PROVIDERS: ATTENDING PHYSICIAN Internal Medicine Critical Care Medicine; FAMILY PHYSICIAN Physician Assistant | DX: G47.33 Obstructive sleep apnea (adult) (pediatric) (principal) | CPT/HCPCS: 95800 ==

== ENCOUNTER → 2024-05-08 09:44 | Outpatient (REF) | payer OTHER, SELFPAY | LOC: HWRAD 09:44 | PROVIDERS: ATTENDING PHYSICIAN Nurse Practitioner Family; FAMILY PHYSICIAN Family Medicine | DX: Z86.711 Personal history of pulmonary embolism (principal) | CPT/HCPCS: 71275; Q9967 ==

== ENCOUNTER → 2024-05-13 10:47 | Outpatient (REF) | payer OTHER, SELFPAY | LOC: RAD 10:47 | PROVIDERS: ATTENDING PHYSICIAN Nurse Practitioner Family | DX: Z86.718 Personal history of other venous thrombosis and embolism (principal) | CPT/HCPCS: 93971 ==

== ENCOUNTER → 2024-05-23 10:56 | Outpatient (REF) | payer OTHER, SELFPAY | LOC: RCS 10:56 | PROVIDERS: ATTENDING PHYSICIAN Nurse Practitioner Family; FAMILY PHYSICIAN Family Medicine | DX: Z86.711 Personal history of pulmonary embolism (principal) | CPT/HCPCS: 93306 ==

== ENCOUNTER → 2024-09-18 10:16 | Outpatient (REF) | payer OTHER, SELFPAY | LOC: RAD 10:16 | PROVIDERS: ATTENDING PHYSICIAN Nurse Practitioner Family; FAMILY PHYSICIAN Physician Assistant | DX: R59.0 Localized enlarged lymph nodes (principal) | CPT/HCPCS: 76882 ==

== ENCOUNTER → 2024-12-28 06:59 | Outpatient (REF) | payer OTHER, SELFPAY | LOC: RAD 06:59 | PROVIDERS: ATTENDING PHYSICIAN Internal Medicine Critical Care Medicine; FAMILY PHYSICIAN Family Medicine | DX: Z86.711 Personal history of pulmonary embolism (principal); R93.89 Abnormal findings on diagnostic imaging of other specified body structures | CPT/HCPCS: 71260; Q9967 ==